=== PATIENT | female | born 1955 | race Caucasian/White ===

== ENCOUNTER 2022-07-05 05:50 | Outpatient (CLI) | payer MEDICARE ==
[~2022-07-05] VITALS: Ht 154.9 cm; Wt 82.6 kg
[2022-07-06] MEDS ORDERED: PANT40TA52 PO (14:33)
[2022-07-06] MEDS ORDERED: SUCR1TAB PO (14:33)
[2022-07-06] MEDS ORDERED: OLME40TA18 PO (14:33)
== END 2022-07-06 14:36 | disposition home or self-care (01) ==
LOC: PREOP 05:50
PROVIDERS: ATTEND Surgery
DX: Z01.818 Encounter for other preprocedural examination (principal)

== ENCOUNTER → 2022-07-12 | Outpatient (CLI) | payer MEDICARE, OTHER ==
[~2022-07-12] MED LIST: BARIUM for suspension 96% w/w (Vanilla Silq Medium Density) PO ONE; BARIUM for suspension 98% w/w (Vanilla Silq High Density) PO ONE; OLME40TA18 PO; PANT40TA52 PO; SUCR1TAB PO
--- NOTE | 2022-07-12 15:43 | Diagnostic Imaging Report ---
INDICATION: Difficulty swallowing solid food. TECHNIQUE: The patient ingested effervescent crystals as well as thin and thick barium and imaging over the esophagus was performed in multiple obliquities. A total of 42 seconds of fluoroscopic time was utilized. FINDINGS: The preliminary radiograph of the chest is unremarkable. The esophagus has a fairly smooth contour. There is a large hiatal hernia present. Mild gastroesophageal reflux is demonstrated as well. No mass or stricture is identified. Images of the stomach are unremarkable. IMPRESSION: Large hiatal hernia and mild gastroesophageal reflux. Dictated by: Dictated on workstation # [id number]
== END ==
LOC: RAD 08:33
PROVIDERS: ATTEND Surgery
DX: K21.9 Gastro-esophageal reflux disease without esophagitis (principal); K44.9 Diaphragmatic hernia without obstruction or gangrene
CPT/HCPCS: 74220

== ENCOUNTER 2022-07-18 08:20 | Day surgery (SDC) | payer MEDICARE, OTHER ==
[~2022-07-18] VITALS: Ht 154.9 cm; Wt 82.6 kg
[~2022-07-18 08:20] MED LIST changes: -BARIUM for suspension 96% w/w (Vanilla Silq Medium Density) PO ONE; -BARIUM for suspension 98% w/w (Vanilla Silq High Density) PO ONE
[2022-07-18] MEDS ORDERED: LACTATED RINGERS 1,000 ML IV STA (08:22)
[2022-07-18] MEDS ORDERED: HURRICAINE EXT TUBE (BENZOCAINE) XX PRN (08:30)
--- NOTE | 2022-07-18 08:37 | Progress Note-Pre Operative ---
Pre-Operative Progress Note Date H&P Reviewed: July 18, 2022 Time H&P Reviewed: 08:37 History & Physical: H&P Reviewed, Patient Examed, No changes noted Pre-Operative Diagnosis: screening colonoscopy, gerd dysphagia FIGUEROA MARAVILLA DO July 18, 2022 08:37
[2022-07-18 08:45] VITALS: BP 116/76
[2022-07-18] MEDS ORDERED: PROPOFOL INJECTION 50 ML IV ONE ×2 (09:16→09:53)
--- NOTE | 2022-07-18 09:57 | Progress Note-Post Operative ---
Post-Operative Progess Note Surgeon (s)/Lumber Piler (s) Surgeon FIGUEROA MARAVILLA DO Lumber Piler: na Pre-Operative Diagnosis screening colonoscopy, gerd, dysphagia Post-Operative Diagnosis sigmoid polyp, diverticulosis Procedure & Operative Findings Date of Procedure 07/18/22 Procedure Performed/Findings Attempted/incomplete EGD, Colonoscopy with hot biopsy polypectomy x1 Anesthesia Type per JEWELRY APPRAISER Estimated Blood Loss Estimated blood loss (mL): none Specimens/Packing Specimens Removed FIGUEROA Morin DO July 18, 2022 09:57
[2022-07-18 10:00] VITALS: BP 97/56
--- NOTE | 2022-07-18 10:02 | Discharge Inst-Simple/Standard ---
Discharge Inst-Standard Patient Instructions/Follow Up Plan of Care/Instructions/FU: follow up with Gemma in two weeks Activity as Tolerated: Yes Discharge Diet: Regular Diet FIGUEROA MARAVILLA DO July 18, 2022 10:02
[2022-07-18 10:05] VITALS: BP 103/59
[2022-07-18 10:42] VITALS: BP 103/59
--- NOTE | 2022-07-18 12:09 | Anesthesia-General Post-Op ---
MAC Patient Condition Mental Status/LOC: Same as Preop Cardiovascular: Satisfactory Nausea/Vomiting: Absent Respiratory: Satisfactory Pain: Controlled Complications: Absent Post Op Complications Complications None Follow Up Care/Instructions Patient Instructions None needed. Anesthesiology Discharge Order Discharge Order Patient is doing well, no complaints, stable vital signs, no apparent adverse anesthesia problems. No complications reported per nursing. RAMÍRZE CONRAD CRNA July 18, 2022 12:09
--- NOTE | 2022-07-18 18:51 | OPERATIVE REPORT ---
DATE OF SERVICE: 07/18/2022 PREOPERATIVE DIAGNOSES: Screening colonoscopy, GERD, dysphagia. POSTOPERATIVE DIAGNOSES: Sigmoid polyp, diverticulosis, proximal esophageal stricture. PROCEDURE: Attempted EGD, colonoscopy with hot biopsy polypectomy x1. SURGEON: Figueroa Menendez DO ANESTHESIA: Per [employer] LEAD. ESTIMATED BLOOD LOSS: None. COMPLICATIONS: None. INDICATIONS: The patient is a 66-year-old female with dysphagia and GERD symptoms. She also needs screening colonoscopy. She understands risks and benefits of procedure and wished to proceed. DESCRIPTION OF PROCEDURE: The patient was taken to endoscopy suite, placed in left lateral recumbent position. Timeout was performed. Scope was inserted in the mouth, the proximal esophagus narrowing present and tried to get the scope to advance, but was unable to get it to advance due to the angulation. The patient was repositioned unable to get this to proceed. Therefore, the scope was retracted until completely removed. Digital rectal exam was performed. No palpable polyps, masses or ulcerations. Scope was inserted in the rectum, advanced all the way to the cecum with minimal difficulty. Prep was adequate. Scope was slowly retracted back. No polyps, masses or ulcerations in the cecum, ascending, transverse, descending colon. Sigmoid colon had some diverticulosis present. Also had a polyp, which hot biopsy polypectomy was performed. Scope was then continuously retracted back. No polyps, mass, or ulcerations within the rectum. Scope was retroflexed noting no other pathology. Scope was returned to its normal position, slowly withdrawn until completely removed. The patient tolerated the procedure well without complications. She was taken to recovery room in stable condition. Recommend high fiber diet due to diverticulosis. The patient with polyp will follow up on pathology. We would recommend repeat colonoscopy in 5 years. The patient with proximal esophageal narrowing, which unable to evaluate the entire upper GI tract due to the scope unable to be passed through this area. We will refer to Gastroenterology for further evaluation and possible dilatation. Job ID: [id number] DocumentID: [id number] Dictated Date: 07/18/2022 10:05:10 Coin Box Inspector Date: 07/18/2022 18:49:00 Dictated By: FIGUEROA MENENDEZ DO
== END 2022-07-18 11:25 | disposition home or self-care (01) ==
LOC: ENDO 08:20
PROVIDERS: ATTEND Surgery
DX: Z12.11 Encounter for screening for malignant neoplasm of colon (principal); K57.30 Diverticulosis of large intestine without perforation or abscess without bleeding; K22.2 Esophageal obstruction; K22.89 Other specified disease of esophagus; K21.00 Gastro-esophageal reflux disease with esophagitis, without bleeding

== ENCOUNTER → 2022-11-07 | Outpatient (CLI) | payer MEDICARE ==
--- NOTE | 2022-11-07 12:09 | Diagnostic Imaging Report ---
Gastric Emptying Scintigraphy Radiopharmaceutical: 1.1 mCi Tc-99m sulfur colloid (cooked together with 120 gm scrambled egg substitute). History: Epigastric pain. Findings: A routine solid-phase gastric emptying scintigraphy examination was performed. Anterior and posterior abdominal images were obtained at 0, 60, 120, 180 and 240 minutes after ingestion of the standardized radiolabeled solid meal. Geometric mean analysis was utilized to calculate a gastric emptying percentage at each of these time-points. Both visual analysis and quantitative data analysis of the images show a normal time-course of gastric emptying. Approximate percentage of residual ingested contents at each time point (corrected for decay) is as follows: 60 min: 55 120 min: 94 180 min: 96 240 min: 98 A gastric retention of greater than 10 percent of the meal at 4 hours is considered diagnostic of a significantly delayed gastric emptying, based on the normative data of a reference population utilizing this standardized technique. Therefore, the current examination indicates a normal gastric emptying in this patient. Impression: Normal solid-phase gastric emptying scintigraphy. Dictated by: Dictated on workstation # [id number]
== END ==
LOC: CARD 06:30
PROVIDERS: ATTEND Internal Medicine Gastroenterology
DX: K21.00 Gastro-esophageal reflux disease with esophagitis, without bleeding (principal)
CPT/HCPCS: 78264; A9541

== ENCOUNTER 2023-01-17 05:54 | Outpatient (CLI) | payer MEDICARE ==
[~2023-01-17] VITALS: Ht 154.9 cm; Wt 79.5 kg
[2023-01-17] MEDS ORDERED: FLUT15.845 NS (10:00)
[2023-01-17] MEDS ORDERED: ALEN35TA53 PO (10:00)
== END 2023-01-17 10:23 | disposition home or self-care (01) ==
LOC: PREOP 05:54
PROVIDERS: ATTEND Surgery
DX: Z01.818 Encounter for other preprocedural examination (principal)

== ENCOUNTER 2023-01-24 07:08 | Observation (INO) | payer MEDICARE ==
[~2023-01-24] VITALS: Ht 154.9 cm; Wt 79.3 kg
[2023-01-24] VITALS (11 sets, daily range): BP systolic 101–178; BP diastolic 52–82
[~2023-01-24 07:08] MED LIST changes: +ALEN35TA53 PO; +FLUT15.845 NSEACH
[2023-01-24] MEDS ORDERED: ceFAZolin INJECTION 2,000 MG in NS (IVPB) 50 ML 50 ML IV ONE (07:30)
[2023-01-24] MEDS ORDERED: NS (IVPB) 50 ML 50 ML ONE (07:47)
[2023-01-24] MEDS ORDERED: ceFAZolin INJECTION 2,000 MG ONE (07:47)
[2023-01-24] MEDS: LACTATED RINGERS 1,000 ML 1,000 ML IV PRN ×2 (07:56→10:30)
--- NOTE | 2023-01-24 08:21 | Progress Note-Pre Operative ---
Pre-Operative Progress Note Date of Available H&P: Jan 16, 2023 Date H&P Reviewed: Jan 24, 2023 Time H&P Reviewed: 08:18 History & Physical: H&P Reviewed, Patient Examed, No changes noted Pre-Operative Diagnosis: Hiatal hernia, Chronic GERD LIOR SIMON DO Jan 24, 2023 08:21
[2023-01-24] MEDS ORDERED: LIDOCAINE 2% w/EPI 1:100,000 20 ML VIAL ONE (08:43)
[2023-01-24] MEDS ORDERED: ROCURONIUM 50 MG/5 ML VIAL IV ONE (09:18)
[2023-01-24] MEDS ORDERED: fentaNYL INJECTION 100 MCG/2 ML VIAL ONE (09:18)
[2023-01-24] MEDS ORDERED: LIDOCAINE PF 2% 5 ML VIAL ONE (09:18)
[2023-01-24] MEDS ORDERED: dexAMETHasone INJ 10 MG/ML 1 ML VIAL ONE (09:18)
[2023-01-24] MEDS ORDERED: proPOfol INJECTION 200 MG/20 ML VIAL IV ONE (09:18)
[2023-01-24] MEDS ORDERED: SUCCINYLCHOLINE INJ 20 MG/1 ML 10 ML VIAL ONE (09:18)
[2023-01-24] MEDS ORDERED: ONDANSETRON INJECTION 4 MG/2 ML (SDV) ONE (09:18)
[2023-01-24] MEDS ORDERED: GLYCOPYRROLATE INJ 0.2 MG/ML 2 ML VIAL ONE (09:19)
[2023-01-24] MEDS ORDERED: NEOSTIGMINE 1 MG/1ML 10 ML VIAL ONE (09:19)
[2023-01-24] MEDS ORDERED: PHENYLEPHRINE 100 MCG/ML 10 ML (ANESTHESIA) SYR ONE (11:50)
[2023-01-24] MEDS ORDERED: SEVOFLURANE (ULTANE) 15 ML INHAL SOLN ONE (11:51)
--- NOTE | 2023-01-24 12:09 | Progress Note-Post Operative ---
Post-Operative Progess Note Surgeon (s)/Design Drafter (s) Surgeon LIOR SIMON DO Design Drafter: Gemma Pre-Operative Diagnosis Hiatal hernia, Chronic GERD Post-Operative Diagnosis Same plus adhesions Procedure & Operative Findings Date of Procedure 01/24/23 Procedure Performed/Findings 1) Laparoscopic Hiatal hernia repair - Robotic 2) Anti-reflux Wrap 180 degree PROCEDURE: The patient is a67 year old female who had an EGD performed, which showed a large hiatal hernia. Also seen on radiology exams. She was having moderated to severe chest pain from this and elected to get this repaired. FINDINGS: The patient had a hiatal hernia, small size with definitely weak diaphragm and right and left petar. PROCEDURE NOTE: After informed consent was obtained, the patient was brought to the operating room, placed on the table in the supine position. She was sterilely prepped and draped in normal fashion. Local lidocaine was used to make an incision just lateral (left side) to the umbilicus, made an incision with #11 blade, carried down through the skin into subcutaneous tissue, then deepened down to subcutaneous tissue with Bovie electrocautery down to the fascia. Fascia was incised with Bovie electrocautery, then spread the muscle and then went through the posterior fascia bluntly, able to get into the abdomen, placed S retractor here and then placed the 12 mm and blew up the balloon, created pneumoperitoneum and then placed 3 more robotic ports, one just lateral on the right side and two about 10 cm away from this one and then two in the patient's left side, 10 cm from the first port we put in, then another 10 cm past that. All of these were done about 20 cm below the costal margin. At this point, noted adhesions and what looked like possibly damage to the large intestine. I used a ligasure through the right port to take down all the adhesions and did not see anything on the intestine. The patient was then placed in severe reverse Trendelenburg about 25 degrees to be a ble to drop everything up out of the chest, could see the hernia/weakness of the crura and a hiatal hernia. At this point, I placed a ZENY stitch on the peritoneum, then just above the hernia, going up under the left lobe of the liver and then to the ri ght side above the liver on the peritoneum and this held the liver up; very minimal tearing of liver capsule. Fenestrated bipolar was placed in the far left, then camera in the second and the third port coming from left to right was the scissors and then far right was a tip-up robotic instrument, able to use the tip-up to grasp at the esophageal fat pad and pull caudal caudad and medial, pulled this down, then started dissecting down. The gastrohepatic ligament or Pars Flaccida was opened with the scissors, able to get into this area and then started dissecting superiorly and inferiorly to get down to the right petar, able to identify the hepatic vagus branch as well as the vasculature and stay away from this. Started dissecting once we were able to get down and get all the way through to the petar and fully exposed the petar, then able to get up into the mediastinum along the esophagus, able to carefully stay away from the posterior esophagus and posterior vagus as well as then started dissecting anteriorly above this to stay away from the anterior vagus. Then, we went to the left side to the left petar, switching the tip ups to grasp the fundus of the stomach coming across the angle of HIS to release this and then started dissecting out the left petar. Able to start to visualize the left petar, switched back on the tip-up grasper to get under the esophagus, make sure we came all the way down to see both sides of the left and right petar at the base, got the tip-up grasper under the esophagus, staying away from the anterior and posterior vagus and we were able to when we relaxed the stomach, saw that there was no tension or angul ation. The esophagus did not get pulled into the mediastinum and we got a good 3-4 cm of esophagus into the abdominal cavity. Once we were sure that we had freed this up, sac dissection was initiated by incising the sac just below the anterior crura, divided a plane posterior to the pericardium, taking care to avoid denuding the crura and the peritoneal lining as well as staying away from the pericardium, helping to pull this down with gentle dissection on the sac. Blunt dissection laterally on either side of the esophagus. There were some diaphanous adhesions that were easily mobilized with blunt dissection as well as with the Robotic vessel sealer and also to get the small vessels. Once we were able to get around the esophagus and felt that we had good mobilization of it into the abdominal cavity and we then started reapproximating the crura, used a 2-0 Prolene V-Loc suture, suturing from just under the esophagus, going down, taking bites about a centimeter distance between bites. Running down to the base, taking care to stay away from the aorta. This closed nicely, ran back up a little bit and then cut this off. Then elected to do a 180 degree Cornell (anterior) wrap, able to again get the tip-up underneath to hold this up and grasped the top of the fundus, had already come across the angle of His. We were not pulling on the spleen. I was able to get a good portion of the stomach up and threw one suture at the 2 o'clock position on the esophagus. Next, I went further out and brought more stomach across and tied at the 10 o'clock position on the esophagus and through the right petar. Grabbed a little lower on the stomach and took a bite and then a bite on just the petar at about 8 o'clock. All of this was done with Ethibond suture. This looked like a really nice wrap. We did not have a bougie but did not look like we had encroached upon anything. There was only scant bleeding. Closure looked good and at this point then removed the suture underneath the liver and pulled this out. I then pulled out all the other suture. Patient was placed in the supine position, removed all ports under direct visualization, allowed pneumoperitoneum to escape. I elected to open up the midline and look again at the intestine. I did not see any damage to small or large bowel; there was a very small seroral tear and elected to leave this alone. I then closed the midline incision, closing the fascia with 0 Vicryl running suture. Copiously irrigated all incisions, then closed the incisions with faby. Area was cleaned and dried, dressings placed. The patient tolerated the procedure. Sponge, instrument and needle count correct at the end of the case. Dr. Menendez assisted on this case helping to make incisions, close incisions, identify anatomy and pass instruments and suture. Anesthesia Type GET Estimated Blood Loss Estimated blood loss (mL): less than 20ml Specimens/Packing Specimens Removed none LIOR SIMON DO Jan 24, 2023 12:09
[2023-01-24] MEDS ORDERED: morphine INJ 10 MG/ML 1ML (SYR OR VIAL) IVP ONE (12:15)
[2023-01-24] MEDS ORDERED: HYDROmorphone INJECTION 2 MG/ML VIAL IV ONE (12:15)
[2023-01-24] MEDS ORDERED: PROMETHAZINE INJ 25 MG/ML VIAL IVP ONE (12:15)
[2023-01-24] MEDS ORDERED: morphine INJ 4 MG/ML 1 ML (VIAL/SYRINGE) IVP PRN (12:15)
[2023-01-24] MEDS ORDERED: ONDANSETRON INJECTION 4 MG/2 ML (SDV) IVP PRN (12:15)
[2023-01-24] MEDS: LACTATED RINGERS 1,000 ML 1,000 ML IV SCH ×2 (14:18→20:23)
[2023-01-24] MEDS: ceFAZolin INJECTION 2,000 MG in NS (IVPB) 50 ML 50 ML IV SCH (17:48)
[2023-01-25] MEDS: ceFAZolin INJECTION 2,000 MG in NS (IVPB) 50 ML 50 ML IV SCH (01:04)
[2023-01-25] MEDS: HYDROcodone/APAP 7.5MG-325 MG/15 ML ORAL SOLN PO PRN ×3 (03:32→16:00)
[2023-01-25] MEDS: LACTATED RINGERS 1,000 ML 1,000 ML IV SCH ×3 (03:32→23:59)
[2023-01-25 03:38] VITALS: BP 132/60
[2023-01-25 07:39] VITALS: BP 145/77
--- NOTE | 2023-01-25 08:15 | Progress Note - Surgery ---
HIPOLITO DAVIDSON 01/25/23 0815: Subjective Date Seen by a Provider: Jan 25, 2023 Time Seen by a Provider: 07:30 Subjective/Events-last exam Pt was laying comfortably and having some soreness near incisions and epigastric region. Pain is well controlled with pain meds.Tolerating clears. Pt states that she is having some difficulty swallowing if she drinks too much at once. Pt is able to ambulate with minimal discomfort. Denies fever, nausea, vomiting, diarrhea, constipation, chest pain, SOA. Review of Systems General: No Chills, No Night Sweats HEENT: No Head Aches, No Visual Changes Pulmonary: No Dyspnea, No Cough Cardiovascular: No: Chest Pain, Palpitations Gastrointestinal: Abdominal Pain; No: Nausea, Vomiting Genitourinary: No Dysuria, No Frequency Musculoskeletal: No: neck pain, shoulder pain Neurological: No: Weakness, Numbness Objective Exam Vital Signs Date Time Temp Pulse Resp B/P (MAP) Pulse Ox O2 Delivery O2 Flow Rate FiO2 01/25/23 07:39 36.8 94 16 145/77 (99) 94 Room Air 01/25/23 03:38 37.2 87 18 132/60 (84) 94 Room Air 01/24/23 23:29 37.0 99 18 150/78 (102) 94 Room Air 0.00 0.00 01/24/23 20:23 Room Air 01/24/23 20:22 36.4 98 18 153/70 (97) 95 Room Air 01/24/23 19:15 36.4 101 20 151/81 (104) 97 Room Air 01/24/23 15:27 36.2 87 18 135/68 (90) 97 Room Air 01/24/23 13:00 Room Air 01/24/23 12:57 Room Air 01/24/23 12:50 36.4 83 16 178/74 (108) 95 Room Air 01/24/23 12:50 36.2 16 153/82 (105) 95 Room Air 01/24/23 12:45 OxyMask 2.00 01/24/23 12:40 22 150/73 (98) 98 OxyMask 2.00 01/24/23 12:30 OxyMask 4.00 01/24/23 12:30 16 164/75 (104) 99 OxyMask 4.00 01/24/23 12:20 22 143/72 (95) 99 OxyMask 4.00 01/24/23 12:15 OxyMask 4.00 01/24/23 12:10 20 157/74 (101) 97 OxyMask 4.00 01/24/23 11:59 OxyMask 6.00 01/24/23 11:59 36.9 16 147/75 (99) 96 OxyMask 6.00 I & O 01/25/23 07:00 Intake Total 4120 ml Output Total 700 ml Balance 3420 ml Capillary Refill : General Appearance: No Apparent Distress, WD/WN HEENT: PERRL/EOMI, Pharynx Normal, Moist Mucous Membranes Neck: Non Tender, Supple Respiratory: Chest Non Tender, Lungs Clear, Normal Breath Sounds, No Accessory Muscle Use, No Respiratory Distress Cardiovascular: Regular Rate, Rhythm, No Edema, No Murmur Peripheral Pulses: 2+ Dorsalis Pedis (R), 2+ Left Dors-Pedis (L), 2+ Radial Pulses (R), 2+ Radial Pulses (L) Gastrointestinal: normal bowel sounds, soft, no organomegaly, distended (mild), tenderness (epigastric region and near incisions. ), other (incisions c/d/i with midline incision having mild erythema. No swelling or purulent drainage. ) Extremity: Non Tender, No Calf Tenderness, No Pedal Edema Neurologic/Psychiatric: Alert, Oriented x3, No Motor/Sensory Deficits, Normal Mood/Affect Skin: Normal Color, Warm/Dry Lymphatic: No Adenopathy Results Lab Microbiology 01/24/23 MRSA Screen - Final, Complete MRSA not isolated Assessment/Plan Assessment/Plan Assessment/Plan Assessment: S/p Hiatal hernia repair (sugar fundoplication) Dysphagia Plan: Tolerating small amount of clears with dysphagia- Monitor dysphagia symptoms IV Fluids Pain well controlled- continue pain meds PRN Ambulate JUANITO MENENDEZ DO 01/25/23 0948: Subjective Subjective/Events-last exam Tolerating some clears, but having dysphagia. Pain controlled. Denies n/v fever sweats chills shortness of breath or chest pain. Objective Exam General Appearance: No Apparent Distress, WD/WN HEENT: PERRL/EOMI, Normal ENT Inspection Neck: Non Tender, Supple Respiratory: Chest Non Tender, No Accessory Muscle Use, No Respiratory Distress Cardiovascular: Regular Rate, Rhythm, No JVD Gastrointestinal: soft, tenderness (epigastric region and near incisions. ), other (incisions c/d/i with midline incision having mild erythema. No swelling or purulent drainage. ) Extremity: Non Tender, No Calf Tenderness Neurologic/Psychiatric: Alert, Oriented x3, No Motor/Sensory Deficits, Normal Mood/Affect Skin: Normal Color, Warm/Dry Lymphatic: No Adenopathy Assessment/Plan Assessment/Plan Assessment/Plan S/p Hiatal hernia repair Dysphagia Plan: Tolerating small amount of clears with dysphagia- Monitor dysphagia symptoms IV Fluids Pain well controlled- continue pain meds PRN Ambulate IS Supervisory-Addendum Brief Verification & Attestation Participated in pt care: history, MDM, physical Personally performed: exam, history, MDM, supervision of care Care discussed with: Medical Student Procedures: n/a Results interpretation: Verified all documentation Verification and Attestation of Medical Student E/M Service A medical student performed and documented this service in my presence. I reviewed and verified all information documented by the medical student and made modifications to such information, when appropriate. I personally performed the physical exam and medical decision making. Juanito Menendez, Jan 25, 2023,09:51 HIPOLITO DAVIDSON Jan 25, 2023 08:15 JUANITO MENENDEZ DO Jan 25, 2023 09:48
[2023-01-25 11:37] VITALS: BP 111/72
[2023-01-25 16:04] VITALS: BP 108/64
[2023-01-25 19:55] VITALS: BP 118/67
[2023-01-26 00:12] VITALS: BP 126/70
[2023-01-26 04:00] VITALS: BP 120/57
[2023-01-26] MEDS: HYDROcodone/APAP 7.5MG-325 MG/15 ML ORAL SOLN PO PRN ×2 (04:49→11:41)
[2023-01-26] MEDS: LACTATED RINGERS 1,000 ML 1,000 ML IV SCH (06:22)
[2023-01-26 07:55] VITALS: BP 123/71
[2023-01-26] MEDS ORDERED: HYDR15SO6 PO (11:29)
--- NOTE | 2023-01-26 11:31 | Discharge Inst-Simple/Standard ---
Discharge Inst-Standard Discharge Medications New, Converted or Re-Newed RX: Transmitted to Pharmacy Patient Instructions/Follow Up Plan of Care/Instructions/FU: Dr. [facility]. Activity as Tolerated: No Discharge Diet: Liquid Diet Other Inst to Patient Follow up Appt: Make appointment for Sunday with Dr. Crain Continue Liquid diet. Instructions: No lifting greater than 10 pounds. No strenuous activity. May shower in 24 hours, no tub bath or soaking. Use incentive spirometer at home as directed. No Smoking Skin/Wound Care: Keep incisions clean and dry. Symptoms to Report: Appetite Changes, Extremity Discoloration, Numbness/Tingling, Swelling Increa sed, Bleeding Excessive, Eyesight Changes, Pain Increased, Urine Color Change, Constipation(Persistent), Fever over 101 degree F, Pain/Pressure in chest, Urinating Difficulty, Cough Up/Vomit Blood, Heart Beat Irreg/Pounding, Pain/Pressure in jaw, Vaginal Bleeding Increase, Cramps in feet or legs, Lightheadedness, Pain/Pressure in shoulder, Diarrhea(Persistent), Memory Changes Suddenly, Questions/Concerns, Weight gain consecutive days, Dizziness/Fainting, Nausea/Vomiting, Shortness of Breath, Weight gain over 2 pounds If questions or concerns contact your physician Or seek help at emergency department. FIGUEROA MARAVILLA DO Jan 26, 2023 11:31
--- NOTE | 2023-01-26 11:31 | Progress Note - Surgery ---
HIPOLITO DAVIDSON 01/26/23 1131: Subjective Date Seen by a Provider: Jan 26, 2023 Time Seen by a Provider: 10:15 Subjective/Events-last exam Pt is resting in chair with family at bedside. Pt is tolerating liquid diet w/o nausea and vomiting. Pt c/o soreness around incision sites, but states pain is controlled with pain medicine. Dysphagia improved. Pt is ambulating and voiding appropiately. Review of Systems General: No Chills, No Night Sweats HEENT: No Head Aches, No Visual Changes Pulmonary: No Dyspnea, No Cough Cardiovascular: No: Chest Pain, Palpitations Gastrointestinal: Abdominal Pain (incision site soreness); No: Nausea, Vomiting Genitourinary: No Dysuria, No Hematuria Musculoskeletal: No: neck pain, shoulder pain Neurological: No: Weakness, Numbness Objective Exam Vital Signs Date Time Temp Pulse Resp B/P (MAP) Pulse Ox O2 Delivery O2 Flow Rate FiO2 01/26/23 08:00 Room Air 01/26/23 07:55 36.3 86 18 123/71 (88) 94 Room Air 01/26/23 04:00 36.8 82 16 120/57 (78) 93 Room Air 01/26/23 00:12 36.5 88 16 126/70 (88) 92 Room Air 01/25/23 20:00 Room Air 01/25/23 19:55 37.7 94 18 118/67 (84) 93 Room Air 01/25/23 16:04 37.2 94 17 108/64 (79) 95 Room Air 01/25/23 11:37 37.2 70 16 111/72 (85) 96 Room Air I & O 01/26/23 06:59 Intake Total 1420 ml Output Total 400 ml Balance 1020 ml Capillary Refill : General Appearance: No Apparent Distress, WD/WN HEENT: PERRL/EOMI, Normal ENT Inspection Neck: Non Tender, Supple Respiratory: Chest Non Tender, No Accessory Muscle Use, No Respiratory Distress Cardiovascular: Regular Rate, Rhythm, No JVD Peripheral Pulses: 2+ Dorsalis Pedis (R), 2+ Left Dors-Pedis (L), 2+ Radial Pulses (R), 2+ Radial Pulses (L) Gastrointestinal: soft, tenderness (epigastric region and near incisions. ), other (incisions c/d/i with midline incision having mild erythema. No swelling or purulent drainage. ) Extremity: Non Tender, No Calf Tenderness Neurologic/Psychiatric: Alert, Oriented x3, No Motor/Sensory Deficits, Normal Mood/Affect Skin: Normal Color, Warm/Dry Lymphatic: No Adenopathy Results Lab Microbiology 01/24/23 MRSA Screen - Final, Complete MRSA not isolated Assessment/Plan Assessment/Plan Assessment/Plan S/p Hiatal hernia repair Dysphagia Plan: Tolerating small amount of clears with dysphagia- Dysphagia improved Pain well controlled Discharge today with PO pain meds and follow up FIGUEROA Mcgee DO 01/26/23 1533: Subjective Subjective/Events-last exam Doing well. No dysphagia. Pain controlled. Tolerating liquids. Using IS. Denies n/v fever sweats chills shortness of breath or chest pain. Objective Exam General Appearance: No Apparent Distress, WD/WN HEENT: PERRL/EOMI, Normal ENT Inspection Neck: Non Tender, Supple Respiratory: Chest Non Tender, No Accessory Muscle Use, No Respiratory Distress Cardiovascular: Regular Rate, Rhythm, No JVD Gastrointestinal: soft, tenderness (incisional), other (incisions c/d/i. No swelling, erythema or purulent drainage. ) Extremity: Non Tender, No Calf Tenderness Neurologic/Psychiatric: Alert, Oriented x3 Skin: Normal Color, Warm/Dry Lymphatic: No Adenopathy Assessment/Plan Assessment/Plan Assessment/Plan S/p Hiatal hernia repair Tolerating clears Dysphagia improved Pain well controlled Discharge today with PO pain meds and follow up Dr. Crain Supervisory-Addendum Brief Verification & Attestation Participated in pt care: history, MDM, physical Personally performed: exam, history, MDM, supervision of care Care discussed with: Medical Student Procedures: n/a Results interpretation: Verified all documentation Verification and Attestation of Medical Student E/M Service A medical student performed and documented this service in my presence. I reviewed and verified all information documented by the medical student and made modifications to such information, when appropriate. I personally performed the physical exam and medical decision making. Figueroa Maravilla, Jan 26, 2023,15:33 HIPOLITO DAVIDSON Jan 26, 2023 11:31 FIGUEROA MARAVILLA DO Jan 26, 2023 15:33
[2023-01-26 11:47] VITALS: BP 124/75
[2023-01-26 12:05] VITALS: BP 124/75
--- NOTE | 2023-01-26 12:58 | Anesthesia-General Post-Op ---
General Post Op Complications Complications None Follow Up Care/Instructions Patient Instructions None needed. Anesthesia/Patient Condition Patient Condition Pt discharged. Chart reviewed, no apparent adverse anesthesia problems noted. OVIDIO SOTO CRNA Jan 26, 2023 12:58
== END 2023-01-26 11:27 | disposition home or self-care (01) ==
LOC: SDC 07:08 → 4TH 12:56 → UNDOADMOB 12:57 → 4TH 13:00 → SDC 13:00 → UNDODISOB 01-26 12:05
PROVIDERS: ADMIT Surgery; ATTEND Surgery
DX: K44.9 Diaphragmatic hernia without obstruction or gangrene (principal); K21.9 Gastro-esophageal reflux disease without esophagitis
CPT/HCPCS: 43280; 87081; 94664; 96361 ×2; 96366; 96376; G0378; G0379